=== PATIENT | male | born 1990 | race Caucasian/White ===

== ENCOUNTER 2016-10-09 02:16 | Emergency (ER) | payer BC ==
[~2016-10-09] VITALS: Ht 177.8 cm; Wt 74.8 kg
--- NOTE | ~2016-10-09 | CR141 ---
[facility] A Service of [facility] RADIOLOGY TEXT RESULTS PATIENT: NADINE BARRAZA LOCATION: [facility] : [birth year] UNIT #: [id number] AGE: [address]: Galindo Hauser MD SEX: M ORDER DR: [id number] [facility] [address] [place], [place] [address] [id number] E MR#: [id number] Acc #: [id number] NAME: NADINE BARRAZA : 1990 SEX: M STUDY DATE/TIME: 10/09/2016 02:47 UNIT: [facility] ROOM: STUDY DESCRIPTION: CR Hand Min 3 Views Lt Attending Physician: Galindo Hauser M.D. Ordering Physician: Galindo Hauser M.D. Primary Care Physician: Primary Care Physician No MEDICAL IMAGING REPORT This report is preliminary unless electronic signature is present EXAM Left hand, 10/09 at 02:47 INDICATION Laceration today after a fall. FINDINGS Four views of the hand were obtained. There is no fracture or malalignment. Soft tissue injury suspected in the webspace between the third and fourth digits. No radiopaque foreign body. IMPRESSION No fracture or radiopaque foreign body identified. Dictated by... Joni Dowling Jr., M.D. THIS IS AN ELECTRONICALLY VERIFIED REPORT Joni Dowling Jr., M.D. at 10/09/2016 9:23 PM BREEZY/alejandra TD: 10/09/2016 15:15 JOB #: [id number] MEDICAL IMAGING REPORT Page 1 of 1 COPY
== END 2016-10-09 05:54 | disposition home or self-care (01) ==
LOC: CED 02:16
DX: S61.012A Laceration without foreign body of left thumb without damage to nail, initial encounter (principal); Z23 Encounter for immunization; W01.0XXA Fall on same level from slipping, tripping and stumbling without subsequent striking against object, initial encounter; Y92.511 Restaurant or cafe as the place of occurrence of the external cause
CPT/HCPCS: 12002; 73130; 90471; 90715; 96361; 96374; 99284; G0480; J0690